=== PATIENT | male | born 1980 | race Caucasian/White ===

== ENCOUNTER 2018-10-14 13:28 | Emergency (ER) | payer MEDICARE, SELFPAY ==
[2018-10-14 13:30] VITALS: BP 140/100; PULSE 101; RESP 18; TEMP 36.6; BMI 40.1
--- NOTE | 2018-10-14 13:55 | CT_ITS ---
STUDY: CT ABDOMEN AND PELVIS WITHOUT CONTRAST REASON FOR EXAM: Male, 38 years old. Possible abscess in the left buttock. History of prior colon cancer and resection. RADIATION DOSAGE (If Supplied By Facility): CTDIvol = ( 22.25 ) mGy, DLP = ( 1495.67 ) mGycm TECHNIQUE: Transaxial images were obtained from the dome of the diaphragm to the symphysis pubis without oral contrast, and without intravenous contrast. Sagittal and coronal images were reconstructed. Individualized dose optimization techniques were used for this CT. COMPARISON: Comparison is made with prior examination dated January 28, 2017. FINDINGS: The visualized lung bases are unremarkable. The visualized portions of the heart are within normal limits. Normal liver. The patient is status post cholecystectomy. Normal spleen. Normal pancreas. Normal bilateral adrenal glands. There are 3 tiny calculi in the upper pole calyx of the right kidney. Normal left kidney. Normal visualized stomach. Normal small intestine. Prior right hemicolectomy with anastomosis in the region of the hepatic flexure. Sigmoid diverticulosis. There is scattered atherosclerotic calcification of the abdominal aorta, without a demonstrated aneurysm. Normal inferior vena cava. There is borderline retroperitoneal lymphadenopathy with enlarged nodes no greater than 10mm in the short axis diameter. Normal urinary bladder. There is a small umbilical hernia containing fat. Normal osseous structures. CT/Abdomen/Pelvis without Cont IMPRESSION: Status post right hemicolectomy. Sigmoid diverticulosis. Tiny calculi in the upper pole calyx of the right kidney. Electronically Signed: Jonathan Shore, at 15:57 EDT , Service support ,
[2018-10-14] MEDS: Ondansetron 4 MG/2 ML Vial IV ×2 (14:37→15:52)
[2018-10-14] MEDS: Morphine 4 MG/ML Syringe IV (14:37)
[2018-10-14 15:00] LABS: Absolute Lymphocyte Count 1.23 X10^3/ul (0.83-4.51); Basophil# 0.05 X10^3/uL; Basophil% 0.6 % (0-1); Eosinophil# 0.37 X10^3/uL; Eosinophils% 4.4 % (0-5); Hematocrit 41.4 % (40-54); Hemoglobin 14.1 g/dl (13.0-16.5); Lymphocyte # 1.23 X10^3/ul (4.0); Lymphocyte % 14.5 % (19-41); Mean Corp Hgb Conc 34.1 g/gl (32-36); Mean Corpuscular Hgb 30.4 pg (27.0-32.0); Mean Corpuscular Volume 89.2 fL (80-94); Mean Platelet Vol. 10.7 fl (6.2-12.0); Monocyte# 0.83 X10^3/uL; Monocyte% 9.8 % (0-10); Neutrophil # 5.98 X10^3/uL (2.7-7.7); Neutrophil % 70.2 % (47-70); POSITIVE COUNT NO; POSITIVE DIFFERENTIAL NO; POSITIVE MORPHOLOGY NO; Platelet Count 265 K/mm3 (150-450); RBC Distribution Width CV 12.8 % (11.6-14.6); RBC Distribution Width SD 41.3 fl (35.1-43.9); Red Blood Count 4.64 M/mm3 (4.6-6.2); White Blood Count 8.5 K/mm3 (4.4-11.0)
[2018-10-14 15:12] LABS: Anion Gap 8 (5-15); BUN 9 mg/dL (7-18); BUN/Creat Ratio 9.8 RATIO (10-20); Calcium,Total 8.9 mg/dL (8.5-10.1); Chloride 109 mmol/L (98-107); Creatinine, Serum 0.91 mg/dL (0.70-1.30); EST Glomerular Filtration Rate 99 mL/min (>60); Est Glom Filt Rate - Afr Amer 120 mL/min (>60); Estimated Creatinine Clearance 125.61 ml/min; Glucose 102 mg/dL (74-106); Potassium 3.8 mmol/L (3.5-5.1); Sodium Level 142 mmol/L (136-145)
[2018-10-14 15:52] VITALS: BP 137/85; PULSE 78; RESP 18; O2SAT 98
[2018-10-14] MEDS: HYDROmorphone 1 MG/ML Syringe IV ×3 (15:52→17:12)
--- NOTE | 2018-10-14 15:52 | ED.DCSUM_ITS ---
- ER Visit Summary Date of Service: 10/14/18 Chief Complaint: Pilonidal abscess and abdominal pain History of Present Illness: The patient is a 38 M presenting for evaluation secondary to pilonidal abscess and abdominal pain. Patient reports that he does have a history of pilonidal abscesses in the past, this 1 has cropped up over the course of the last 24 hours and is significantly painful. Patient also states that he has been dealing with abdominal pain. Spin going on for a little bit of time, but now has been associated with relatively significant nausea and vomiting. Patient has a history of having neuroendocrine tumors, and having multiple abdominal surgeries including hemicolectomy appendectomy and cholecystectomy. He denies any presence of fevers. Review of systems otherwise negative. Physical Examination: Vital signs notable for heart rate of 101. Overweight male visibly uncomfortable. Head normocephalic. Moist mucous membranes. Neck supple. Heart was tachycardic and regular no murmurs. Lungs clear. Abdomen was tender in the left lower quadrant with a large midline abdominal scar no obvious palpable masses or hernias. Left-sided pilonidal cyst was noted on rectal exam, no evidence of extension into the rectum. No significant overlying skin changes. Remainder of physical otherwise unremarkable. Test Results: CBC and chemistry unremarkable, CT abdomen and pelvis shows postsurgical changes nothing acute Emergency Department Course and Treatment: Patient presented secondary to a pilonidal cyst and abdominal pain. Patient does have a history of multiple abdominal surgeries so a CT scan was ordered which was found to be negative. Patient's pain was addressed with morphine and Dilaudid in the emergency department. Patient's pilonidal cyst was then addressed. He was consented for incision and drainage. Patient was injected with 10 cc 1% lidocaine, and then the maximum area of fluctuance was incised with an 11 blade. Serosanguineous fluid was able to be obtained, not a significant amount of purulence. Area was probed in the loculated and then irrigated and then left open. Patient tolerated this adequately. Patient will be sent home with a course of Nash and Bactrim. Disposition: Discharge Impression: 1. Chronic abdominal pain 2. Pilonidal abscess status post incision and drainage This note was generated with [employer] software. It may contain incorrect words, spelling, and punctuation that were not noted in review of the chart prior to signing ED Disposition - Plan for ED Patient: Disposition: Home or Assisted Living Diagnosis: Pilonidal abscess Instructions: ED Cyst Pilonidal Infected IandD Prescriptions: Hydrocodone Bitart/Apap 5-325 [Nash 5MG-325MG] 1 tab PO Q6H PRN PRN 3 Days #12 tab PRN Reason: Pain Smz/Tmp Ds [Bactrim Ds] 1 tab PO BID #14 tab [facility] [[facility] Provider[facility] - 3-5 Days
[2018-10-14] MEDS: LORazepam 2 MG/ML Syringe 0.5 MG IV (16:22)
--- NOTE | 2018-10-14 17:14 | ED.RN ---
PT AMBULATES OUT OF DEPARTMENT WITHOUT DIFFICULTY.
== END 2018-10-14 17:14 | disposition home or self-care (01) ==
PROVIDERS: Emergency Provider Emergency Medicine
DX: L05.01 Pilonidal cyst with abscess (principal); G89.29 Other chronic pain; R10.32 Left lower quadrant pain
CPT/HCPCS: 10080; 74176; 80048; 85025; 96374; 96375; 96376; 99285; A4216; J2405

== ENCOUNTER 2018-10-17 16:29 | Emergency (ER) | payer MEDICARE, SELFPAY ==
[2018-10-17 16:30] VITALS: BP 143/94; PULSE 107; RESP 16; TEMP 36.9; O2SAT 96; BMI 39.5
[2018-10-17 17:09] VITALS: BP 142/87; PULSE 88; RESP 16; TEMP 36.9; O2SAT 98
[2018-10-17] MEDS: Morphine 4 MG/ML Syringe IV (17:37)
[2018-10-17] MEDS: Ondansetron 4 MG/2 ML Vial IV (17:37)
[2018-10-17] MEDS: 0.9% Normal Saline 1,000 ML 1000 ML IV (17:37)
[2018-10-17 17:46] LABS: Absolute Lymphocyte Count 1.31 X10^3/ul (0.83-4.51); Absolute Neutrophil Count 6.2 X10^3/uL (2.0-7.7); Basophil# 0.04 X10^3/uL; Basophil% 0.5 % (0-1); Eosinophil# 0.42 X10^3/uL; Eosinophils% 4.8 % (0-5); Hematocrit 43.7 % (40-54); Hemoglobin 15.2 g/dl (13.0-16.5); Lymphocyte # 1.31 X10^3/ul (4.0); Mean Corp Hgb Conc 34.8 g/gl (32-36); Mean Corpuscular Hgb 31.4 pg (27.0-32.0); Mean Corpuscular Volume 90.3 fL (80-94); Mean Platelet Vol. 9.7 fl (6.2-12.0); Monocyte# 0.66 X10^3/uL; Monocyte% 7.6 % (0-10); Neutrophil % 71.2 % (47-70); Platelet Count 252 K/mm3 (150-450); RBC Distribution Width CV 12.7 % (11.6-14.6); RBC Distribution Width SD 41.7 fl (35.1-43.9); Red Blood Count 4.84 M/mm3 (4.6-6.2); White Blood Count 8.7 K/mm3 (4.4-11.0)
[2018-10-17 17:48] LABS: POSITIVE COUNT NO; POSITIVE DIFFERENTIAL NO; POSITIVE MORPHOLOGY NO
[2018-10-17 17:54] LABS: BUN 10 mg/dL (7-18); EST Glomerular Filtration Rate 90 mL/min (>60); Glucose 126 mg/dL (74-106)
[2018-10-17 17:55] LABS: ALB/GLOB Ratio 1.1 RATIO (0.9-2.4); AST(SGOT) 15 U/L (15-37); Alanine Aminotransfer ALT/SGPT 32 U/L (16-61); Albumin, Serum 3.9 g/dL (3.2-5.0); Alkaline Phosphatase 74 U/L (45-117); Anion Gap 6 (5-15); Calcium,Total 8.6 mg/dL (8.5-10.1); Chloride 109 mmol/L (98-107); Est Glom Filt Rate - Afr Amer 109 mL/min (>60); Globulin 3.6 g/dL (2.2-4.2); Lipase 49 U/L (73-393); Potassium 3.6 mmol/L (3.5-5.1); Protein, Total 7.5 g/dL (6.4-8.2); Sodium Level 140 mmol/L (136-145)
[2018-10-17 18:19] LABS: Bacteria 0 SEEN /hpf (None Seen); Red Blood Cells-Urine 0 SEEN /hpf (0-5)
[2018-10-17] MEDS: HYDROmorphone 0.5 MG/0.5 ML SYRINGE IV (18:19)
[2018-10-17 18:21] LABS: Color, Urine Yellow (Yellow); Glucose, Dipstick Normal (Normal); Ketone-Dipstick Negative (Negative); Leukocyte Esterase-Dipstick Negative /ul (Negative); Nitrite-Dipstick Negative (Negative); Occult Blood-Urine Negative /ul (Negative); Protein-Dipstick Negative (Negative); Specific Gravity, Urine 1.015 (1.002-1.030); Urine Bilirubin Dipstick Negative (Negative); Urine Clarity Clear (Clear); Urine Urobilinogen Normal (Normal)
[2018-10-17 18:28] LABS: Hyaline Cast 0-5 SEEN /lpf (0-5); Mucous, Urine 1+ /hpf (<or=2+)
[2018-10-17 18:29] LABS: White Blood Cells 0-5 SEEN /hpf (0-5)
[2018-10-17 18:31] LABS: Squamous Epithelial Cells - UA 0-5 SEEN /hpf (0-5)
[2018-10-17 18:33] VITALS: BP 138/87; PULSE 85; PULSE 88; RESP 16; TEMP 36.9; O2SAT 98
--- NOTE | 2018-10-17 18:36 | ED.VISSUMM ---
- ER Visit Summary Date of Service: 10/17/18 Chief Complaint: Abdominal pain and back pain History of Present Illness: The patient is a 38 M who presents with abdominal pain and back pain that has been getting worse over the past couple days. Patient states he had a abscess drained here 3 days ago. Patient states that the pain is getting worse. Patient states the pain goes from his buttock to his low back. Patient also admits to increasing abdominal pain. Patient states he has a history of neuroendocrine tumors. Patient is unsure if he is developing a bowel obstruction or having acute intra-abdominal process. Patient states he has a history of a right hemicolectomy and 2 laparotomies for his neuroendocrine tumors along with prior appendectomy and cholecystectomy. Physical Examination: Vital signs are stable. Patient is afebrile. Patient is in no acute distress. Oral mucosa is pink and moist. Neck is supple. Trachea is midline. There is no JVD noted. Heart was regular rate and rhythm. Lungs are clear and equal bilateral. Abdomen is soft. Bowel sounds are normal. There is left mid abdominal tenderness. There is no rebound or guarding noted. Skin is warm dry. Cranial nerves II through XII are intact. There are no focal motor or sensory deficits noted. The remaining physical exam is within normal limits. Test Results: CBC, comprehensive metabolic profile, lipase, and urinalysis were obtained and were normal. CT scan of the abdomen and pelvis with oral and IV contrast was ordered. Patient left prior to completing CT scan. Emergency Department Course and Treatment: Patient was given IV morphine and Zofran. Patient was given IV Dilaudid. Patient became upset and left the emergency department prior to obtaining CT scan. Disposition: Discharged AGAINST MEDICAL ADVICE Impression: Abdominal pain This note was generated with [employer] dictation software. It may contain incorrect words, spelling, and punctuation that were not noted in review of the chart prior to signing ED Disposition - Plan for ED Patient: Disposition: Against Medical Advice [facility]: [facility] [Primary [facility] Provider] -
--- NOTE | 2018-10-17 19:13 | ED.RN ---
PT CONTINUES TO C/O OF PAIN, PT WAS MEDICATED WITH 4 MG OF MORPHINE AND THEN ANOTHER 0.5 MG OF DILAUDID. PT STATES THE LAST TIME I WAS HERE IT TOOK 3MG OF DILAUDID TO GET MY PAIN UNDER CONTROL. PT INFORMED THAT DR. HYMAN WOULD NOT PRESCRIBE MORE PAIN MEDICATION AT THIS TIME. PT INFORMED THAT HE WOULD HAVE TO HAVE A RIDE AND THAT HE WOULD NOT BE ALLOWED TO DRIVE. PT STATES I WOULDN'T DREAM OF DRIVING NOT WITH STAYING FFA CERTIFIED. PT THEN STATED IF YOU DON'T TAKE THIS IV OUT OF MY FOOT THEN I'M GOING TO RIP IT OUT AND WALK OUTSIDE. PT'S IV REMOVED, CANNULA INTACT,DRESSING APPLIED. PT INSTRUCTED THAT HE WOULD HAVE TO WAIT FOR HIS RIDE IN THE WAITING ROOM. PT VOICED UNDERSTANDING. SECURITY THEN INFORMED TO WATCH PT FOR RISK OF DRIVING UNDER THE INFLUENCE OF NARCOTICS.
== END 2018-10-17 19:25 | disposition left against medical advice (07) ==
LOC: ED 17:59
PROVIDERS: Emergency Provider Emergency Medicine
DX: R10.9 Unspecified abdominal pain (principal); F41.9 Anxiety disorder, unspecified; F43.10 Post-traumatic stress disorder, unspecified; Z72.0 Tobacco use; Z79.899 Other long term (current) drug therapy
CPT/HCPCS: 80053; 81001; 83690; 85025; 96361; 96374; 96375; 99285; J2405

== ENCOUNTER 2019-01-06 22:29 | Emergency (ER) | payer MEDICARE, SELFPAY ==
[2019-01-06 22:29] VITALS: PULSE 114; RESP 17; TEMP 37.2; O2SAT 98; BMI 39.4
--- NOTE | 2019-01-06 22:38 | ED.RN ---
unable to obtain bp in triage. pt is irritable and restless. he stated it is related to my anxiety. per pt hx of ptsd. pt asked to smoke prior to entering department. darren lewis rn [id number]
== END 2019-01-06 23:09 | disposition left against medical advice (07) ==
LOC: ED 22:46
PROVIDERS: Emergency Provider Emergency Medicine
DX: R10.9 Unspecified abdominal pain (principal)

== ENCOUNTER 2021-07-09 07:47 | Emergency (ER) | payer MEDICARE, SELFPAY ==
[2021-07-09 07:48] VITALS: BP 136/72; PULSE 106; RESP 24; TEMP 36.9; O2SAT 95; BMI 42.2
--- NOTE | 2021-07-09 08:12 | EKG12_ITS ---
Test Reason : CP Blood Pressure : / mmHG Vent. Rate : 100 BPM Atrial Rate : 100 BPM P-R Int : 162 ms QRS Dur : 100 ms QT Int : 362 ms P-R-T Axes : 049 061 067 degrees QTc Int : 466 ms Normal sinus rhythm Normal ECG Confirmed by YUDELKA FRAZIER, HANNAH ([id number]), editorial clerk JAZMIN GRUBBS ([id number]) on 07/10/2021 1:55:40 PM Referred By: NAMITA Confirmed By:HANNAH JHA MD
--- NOTE | 2021-07-09 08:13 | EDS_ITS ---
HPI History of Present Illness Chief Complaint: Chest Pain Detail of Chief Complaint: upper abdominal pain, vomiting blood Informant: patient Onset/Context/Timing Onset: Days (2 days) Context: Gradual Onset Timing: Waxes and wanes Current Severity: Moderate Maximum Severity: Moderate Narrative Narrative: Patient presents secondary to upper abdominal pain worse in the right upper quadrant. He states he was vomiting blood yesterday. He went to the [place] and had an EKG and blood work drawn while in triage. He left before being seen by a physician. He states the vomiting calmed down last evening but then recurred again this morning. He reports having a history of neuroendocrine cancer currently on hormone therapy. His last treatment was 2 weeks ago. He has had a prior right hemicolectomy. [facility] Medical History Neuroendocrine cancer Home Medications Ranitidine [Zantac] 300 mg PO DAILY 02/16/16 [History Last Taken 10/17/18] diazepam [Valium] 20 - 30 mg PO BID PRN PRN 02/16/16 [History Last Taken 10/17/18] ondansetron HCl 1 tab PO Q8 PRN 01/28/17 [History Last Taken 10/17/18] promethazine [Phenergan] 25 mg RECTAL Q6H PRN PRN 01/28/17 [History Last Taken 10/17/18] sulfamethoxazole-trimethoprim 1 tab PO BID #14 tab 10/14/18 [Rx Last Taken 10/17/18] Allergy/AdvReac Type Severity Reaction Status Date / Time aspirin Allergy Angioedema Verified 01/06/19 22:41 etodolac Allergy Anaphylaxis Verified 01/06/19 22:41 ketorolac Allergy Anaphylaxis Verified 01/06/19 22:41 Penicillins Allergy Anaphylaxis Verified 01/06/19 22:41 Surgical History H/O right hemicolectomy Hx of cholecystectomy Social History Smoking Status: Current every day smoker tobacco type: cigarettes ROS ROS ED Constitutional Constitutional ED: Denies chills or fever(s) Eyes Eyes: Denies change in vision ENT ENT ED: Denies sore throat Cardiovascular Cardiovascular: Reports chest pain Respiratory/Chest Respiratory/Chest: Denies cough or dyspnea Gastrointestinal Gastrointestinal: Reports abdominal pain, nausea and vomiting; Denies diarrhea Genitourinary Genitourinary ED: Denies dysuria Musculoskeletal Musculoskeletal: Denies back pain Integumentary Denies rash Neurologic Neurologic: Denies headache(s) or weakness Psychiatric Psychiatric: Reports anxiety Allergic/Immunologic Allergic/Immunologic ED: Denies urticaria EXAM Physical Exam Const Vital Signs: 07/09/21 07:48 07/09/21 09:16 Temperature 98.4 F Temperature Source Temporal Pulse Rate 106 H 100 Respiratory Rate 24 H 21 H Blood Pressure 136/72 H 131/69 H Blood Pressure Mean 93 89 Pulse Ox 95 95 Oxygen Delivery Method Room Air Room Air Positive well nourished and well developed General Appearance ED: well developed HEENT Reports moist mucous membranes Eyes PERRL and EOMs intact bilaterally Neck supple Chest Wall inspection of chest normal and palpation of chest normal Resp normal respiratory effort and clear to auscultation bilaterally Cardio regular rhythm Rate: tachycardic GI Palpation: soft and tender epigastric Extremity normal to inspection Neuro oriented x3 Sensorium / Orientation: alert Psych mental status grossly normal Skin no rashes or lesions noted MDM MDM MDM Narrative Medical decision making narrative: Lab work and EKG obtained. Initially ordered the patient IV pain medication, but patient is a very difficult stick. Even with IV visualization they were unable to obtain an IV line. They were able to draw blood. Lab Data Attestation: I reviewed the patient's lab results. Labs: Laboratory Results - last 24 hr 07/09/21 07/09/21 07/09/21 08:50 08:50 08:50 WBC 10.1 RBC 4.35 L Hgb 13.2 Hct 39.8 L MCV 91.5 MCH 30.3 MCHC 33.2 RDW Std Deviation 44.3 H RDW Coeff of Diego 13.1 Plt Count 215 MPV 9.7 Immature Gran % (Auto) 0.500 Neut % (Auto) 75.4 H Lymph % (Auto) 12.9 L [place] % (Auto) 8.2 Eos % (Auto) 2.2 Baso % (Auto) 0.8 Absolute Neuts (auto) 7.7 Absolute Lymphs (auto) 1.31 Nucleated RBC % 0 PT Cancelled INR Cancelled APTT Cancelled Sodium 138 Potassium 3.7 Chloride 107 Carbon Dioxide 24.0 Anion Gap 7 BUN 10 Creatinine 0.92 Estim Creat Clear Calc 120.62 Est GFR (MDRD) Af Amer 117 Est GFR (MDRD) Non-Af 97 BUN/Creatinine Ratio 10.9 Glucose 133 H Calcium 8.4 L Total Bilirubin 0.20 Direct Bilirubin 0.06 AST 17 ALT 41 Alkaline Phosphatase 65 Troponin I High Sens 4 Total Protein 7.3 Albumin 3.4 Globulin 3.9 Lipase 88 EKG Initial EKG: Attestation: I personally reviewed and interpreted this EKG as follows: Interpretation: Sinus Rhythm (Sinus at 100 with no acute ischemia.) Treatment and Re-Evaluation Comments:: I did review clinic state records on this patient. He was seen at [facility] in [place] at 9 PM last evening and at [facility] at 2 AM this morning. He had blood work drawn at both visits. He had a negative stool guaiac performed at [facility]. He was discharged to follow-up as an outpatient and reportedly patient left prior to receiving his discharge paperwork. Patient's been asking in the ER multiple times to get an IJ line placed so he can get IV pain medication. In review of blood work currently he does not appear to be acutely anemic and his hemoglobin has been stable over the last 12 to 16 hours. He has not had any hematemesis in the emergency room. At this time he will be discharged and referred to Dr. Moore for outpatient follow-up and potential scope. Discharge Plan Triage Chief Complaint: Chest Pain ED Provider: Lucia Crawley Dx/Rx/DC Orders Clinical Impression: Abdominal pain, Hematemesis Instructions: ED Upper GI Bleeding (Stable) Prescriptions: No Action diazepam [Valium] 10 MG tablet 20 - 30 mg PO BID PRN PRN (Reason: PTSD) RF: 0 Ranitidine [Zantac] 300 MG tablet 300 mg PO DAILY RF: 0 promethazine [Promethegan] 25 MG Suppos. 25 mg RECTAL Q6H PRN PRN (Reason: Nausea) RF: 0 ondansetron HCl 8 MG tablet 1 tab PO Q8 PRN (Reason: Nausea) RF: 0 sulfamethoxazole-trimethoprim 1 TABLET tablet 1 tab PO BID Qty: 14 RF: 0 [facility]: [facility] Referrals: Navarro Moore DO [STAFF PHYSICIAN] - [facility] - Disposition Disposition: Home, Self Care
--- NOTE | 2021-07-09 08:57 | NURSING ---
Pt insisted that RN attempt IV stink in foot. R foot venipuncture successful for blood draw but unable to keep IV in area. wildlife refuge specialist made aware. wildlife refuge specialist with multiple IV attempts as well.
[2021-07-09 09:02] LABS: Absolute Lymphocyte Count 1.31 X10^3/uL (0.83-4.51); Absolute Neutrophil Count 7.7 X10^3/uL (2.0-7.7); Basophil# 0.08 X10^3/uL; Basophil% 0.8 % (0-1); Eosinophil# 0.22 X10^3/uL; Eosinophils% 2.2 % (0-5); Hematocrit 39.8 % (40-54); Hemoglobin 13.2 g/dL (13.0-16.5); Lymphocyte # 1.31 X10^3/ul (0.83-4.51); Lymphocyte % 12.9 % (19-41); Mean Corp Hgb Conc 33.2 g/dL (32-36); Mean Corpuscular Hgb 30.3 pg (27.0-32.0); Mean Corpuscular Volume 91.5 fL (80-94); Mean Platelet Vol. 9.7 fl (6.2-12.0); Monocyte# 0.83 X10^3/uL; Monocyte% 8.2 % (0-10); NRBC Flagged by Analyzer 0 % (0-5); Neutrophil # 7.65 X10^3/uL (2.7-7.7); Neutrophil % 75.4 % (47-70); Platelet Count 215 K/mm3 (150-450); RBC Distribution Width CV 13.1 % (11.6-14.6); RBC Distribution Width SD 44.3 fl (35.1-43.9); Red Blood Count 4.35 M/mm3 (4.6-6.2); White Blood Count 10.1 K/mm3 (4.4-11.0)
--- NOTE | 2021-07-09 09:11 | NURSING ---
MD made aware of inability to start IV. sports internship to attempt w/ ultrasound.
[2021-07-09 09:16] VITALS: BP 131/69; PULSE 100; RESP 21; O2SAT 95
[2021-07-09 09:34] LABS: AST(SGOT) 17 U/L (15-37); Alanine Aminotransfer ALT/SGPT 41 U/L (16-61); Albumin, Serum 3.4 g/dL (3.2-5.0); Alkaline Phosphatase 65 U/L (45-117); Anion Gap 7 (5-15); BUN 10 mg/dL (7-18); BUN/Creat Ratio 10.9 RATIO (10-20); Bilirubin, Direct 0.06 mg/dL (0.00-0.30); Calcium,Total 8.4 mg/dL (8.5-10.1); Chloride 107 mmol/L (98-107); Creatinine, Serum 0.92 mg/dL (0.70-1.30); EST Glomerular Filtration Rate 97 mL/min (>60); Est Glom Filt Rate - Afr Amer 117 mL/min (>60); Estimated Creatinine Clearance 120.62 ml/min; Globulin 3.9 g/dL (2.2-4.2); Glucose 133 mg/dL (74-106); Lipase 88 U/L (73-393); Potassium 3.7 mmol/L (3.5-5.1); Protein, Total 7.3 g/dL (6.4-8.2); Sodium Level 138 mmol/L (136-145); Troponin-I HS 4 pg/mL (3.0-78.0)
--- NOTE | 2021-07-09 10:39 | NURSING ---
Pt requesting to speak w/ . Dr. Crawley to be made aware. This RN attempted IV stick x6 times without success.
== END 2021-07-09 10:48 | disposition home or self-care (01) ==
PROVIDERS: Emergency Provider Emergency Medicine; Visit Provider Emergency Medicine
DX: R10.11 Right upper quadrant pain (principal); K92.0 Hematemesis; F17.210 Nicotine dependence, cigarettes, uncomplicated; D3A.8 Other benign neuroendocrine tumors; Z79.899 Other long term (current) drug therapy; R11.2 Nausea with vomiting, unspecified; Z90.49 Acquired absence of other specified parts of digestive tract
CPT/HCPCS: 80048; 80076; 83690; 84484; 85025; 87426; 93005; 96361; 96365; 96375; 99283